=== PATIENT | female | born 1995 | race Caucasian/White ===

== ENCOUNTER → 2017-12-23 | Outpatient (CLI) | payer BC ==
[~2017-12-23] MED LIST: ACET1TAB43 PO; ACHD5005 PO; DOCU-143 PO; DOCU100C37 PO; GLYB2.5T4 PO; IBUP-1773 PO; IRON1TAB96 PO; NORG1TAB79 PO; PREN-148 PO
--- NOTE | 2017-12-23 13:58 | Diagnostic Imaging Report ---
INDICATION: survey. TECHNIQUE: Multiple real-time grayscale images were obtained over the gravid uterus. COMPARISON: None. FINDINGS: There is a single live fetus in a variable presentation. Cervical length is 4 cm. Placenta is anterior. The amniotic fluid volume is normal. heart rate was recorded at 139 beats per minute. kidneys, bladder, and stomach are unremarkable apart from slight prominence of the renal pelves bilaterally measuring approximately 5 mm each. brain is unremarkable. There is a four-chamber heart. There is a three-vessel cord with normal cord insertion. spine is unremarkable. Maternal adnexa was not evaluated. Biometrical measurements are as follows: Biparietal 4.83 cm, age 20 weeks 5 days. Head circumference 17.44 cm, age 20 weeks 0 days. Abdominal circumference 14.78 cm, age 20 weeks 1 days. Femur length 3.03 cm, age 19 weeks 3 days. Sonographic estimate age: 20 weeks 1 days. Sonographic estimated date of delivery: 05/11/2018. Estimated Weight: 313 gm (+/- 46 gm). LMP percentile: 27%. heart rate: 139 beats per minute. number: 1 of 1. IMPRESSION: Single live IUP at 20 weeks 1 day gestational age. Estimated date of confinement sonographically is 05/11/2018. Dictated by: Dictated on workstation # [id number]
== END ==
LOC: RAD 12:52
PROVIDERS: ATTEND Obstetrics & Gynecology
DX: Z36.89 Encounter for other specified antenatal screening (principal); Z3A.20 20 weeks gestation of pregnancy
CPT/HCPCS: 76805

== ENCOUNTER 2018-05-02 06:30 | Inpatient (IN) | payer BC ==
[2018-05-02] VITALS (42 sets, daily range): BP systolic 103–143; BP diastolic 58–86
[~2018-05-02] VITALS: Ht 177.8 cm; Wt 85.7 kg
[2018-05-02] MEDS ORDERED: NS IV 1000 ML 1,000 ML ONE (07:19)
[2018-05-02] MEDS ORDERED: NS IV 1000 ML 1,000 ML IV SCH (07:42)
[2018-05-02] MEDS ORDERED: OXYTOCIN/NORMAL SALINE 500 ML IV SCH (07:42)
[2018-05-02] MEDS ORDERED: MINERAL OIL CONCENTRATE 99.9% 15 ML UDC TOP PRN (07:45)
[2018-05-02 07:50] LABS: BASOPHILS % (AUTO) 0 % (0-10); EOSINOPHILS # (AUTO) 0.1 10^3/uL (0.0-0.3); EOSINOPHILS % (AUTO) 1 % (0-10); HEMATOCRIT 36 % (35-52); LYMPHOCYTES # (AUTO) 2.5 X 10^3 (1.0-4.0); LYMPHOCYTES % (AUTO) 27 % (12-44); MEAN CORPUSCULAR HEMOGLOBIN 31 PG (25-34); MEAN CORPUSCULAR HGB CONC 36 G/DL (32-36); MEAN CORPUSCULAR VOLUME 86 FL (80-99); MEAN PLATELET VOLUME 10.1 FL (7.4-10.4); MONOCYTES # (AUTO) 0.5 X 10^3 (0.0-1.0); MONOCYTES % (AUTO) 6 % (0-12); NEUTROPHILS # (AUTO) 6.3 X 10^3 (1.8-7.8); NEUTROPHILS % (AUTO) 66 % (42-75); PLATELET COUNT 311 10^3/uL (130-400); RED BLOOD COUNT 4.23 10^6/uL (4.35-5.85); RED CELL DISTRIBUTION WIDTH 13.7 % (10.0-14.5); WHITE BLOOD COUNT 9.4 10^3/uL (4.3-11.0)
--- NOTE | 2018-05-02 08:31 | History & Physical-OB ---
OB - Chief Complaint & HPI Date/Time Date of Admission: Date of Admission: May 02, 2018 at 6:42 am Date seen by a Provider: May 02, 2018 Time Seen by a Provider: 08:07 Chief Complaint/History OB-Reason for Admission/Chief: Induction of Labor Hx : 2 Hx Para: 1 Expected Date of Delivery: May 11, 2018 Gestational Age in Weeks: 38 Gestational Age in Days: 5 Admission Nurse Assessment Rev: Yes History of Labs O pos Antibody neg RI RPR NR HB sAg NR HIV NR GC neg GBS neg Allergies and Home Medications Allergies Coded Allergies: Penicillins (Verified Allergy, Mild, Itching, 10/17/15) Home Medications Docusate Sodium 100 Mg Capsule, 100 MG PO BID Prescribed by: RADHA HOLGUIN on 10/21/15 0959 Hydrocodone Bit/Acetaminophen 1 Each Tablet, 1 TAB PO Q4H PRN Prescribed by: RADHA HOLGUNI on 10/21/15 0959 Norgestrel-Ethinyl Estradiol 1 Each Tablet, 1 EACH PO DAILY, (Reported) Patient Home Medication List Home Medication List Reviewed: Yes OB - History Hx of Present Care: Yes Ultrasounds: Normal mid trimester US Obstetrical Complications: Gestational Diabetes Medical Complications: None Delivery History Hx Blood Disorders: No Adverse Rxn to Tranfusion: No Patient Past Medical History none Social History/Family History HIV/AIDS: No Immunizations Hepatitis A: No Hepatitis B: No Tetanus Booster (TDap): Less than 5yrs Date of Influenza Vaccine: Jun 18, 2015 OB - Admission Exam Physical Exam HEENT: NCAT Heart: Rhythm Normal Lungs: Clear Abdomen: Gravid Extremities: Normal Reflexes: Normal Cervical Dilatation: 3cm Effacement: 75% Station: -1 Membranes: Intact Heart Rate: 130's Accelerations: Accelerations Present Decelerations: No Decelerations Short Term Variability: Present Delicatessen Store Manager Variability: Average (6-25) Contractions on Admission: 6-10 Minutes Apart Intensity: Mild Rich Scoring Tool (Modified) Dilation (cm): 3-4cm (2) Effacement (%): 51-79% (2) Descent/Station: -1,0 (2) Cervix Consistency: Soft (2) Cervix Position: Middle/Mid-Position (1) Add 1 point for: Each previous vaginal delivery (1) Rich Score: 10 Labs Laboratory Tests Test 05/02/18 07:00 Range/Units White Blood Count 9.4 4.3-11.0 10^3/uL Red Blood Count 4.23 L 4.35-5.85 10^6/uL Hemoglobin 13.0 11.5-16.0 G/DL Hematocrit 36 35-52 % Mean Corpuscular Volume 86 80-99 FL Mean Corpuscular Hemoglobin 31 25-34 PG Mean Corpuscular Hemoglobin Concent 36 32-36 G/DL Red Cell Distribution Width 13.7 10.0-14.5 % Platelet Count 311 130-400 10^3/uL Mean Platelet Volume 10.1 7.4-10.4 FL Neutrophils (%) (Auto) 66 42-75 % Lymphocytes (%) (Auto) 27 12-44 % Monocytes (%) (Auto) 6 0-12 % Eosinophils (%) (Auto) 1 0-10 % Basophils (%) (Auto) 0 0-10 % Neutrophils # (Auto) 6.3 1.8-7.8 X 10^3 Lymphocytes # (Auto) 2.5 1.0-4.0 X 10^3 Monocytes # (Auto) 0.5 0.0-1.0 X 10^3 Eosinophils # (Auto) 0.1 0.0-0.3 10^3/uL Basophils # (Auto) 0.0 0.0-0.1 10^3/uL OB - Assessment/Plan/Diagnosis Assessment Assessment: induction of labor Admission Dx 22 yo @ 38.5 GDMA2 GBS neg Admission Status: Inpatient Order (span 2 midnights) Reason for Inpatient Admission: Induction of labor Plan Induction Method: CAROLINE CHOI DO May 02, 2018 8:31 am
[2018-05-02] MEDS ORDERED: FLU QUADRIvalent (5+ YOA) 2018-2019 (AFLURIA) 0.5 ML IM ONE (09:45)
[2018-05-02] MEDS ORDERED: SUFENTA 0.6MCG/ML BUPIVA 0.125 100 ML ONE (10:35)
[2018-05-02] MEDS ORDERED: fentaNYL INJECTION 100 MCG/2 ML AMP ONE (10:48)
[2018-05-02] MEDS ORDERED: LIDOCAINE PF 2% 5 ML (XYLOCAINE) VIAL ONE (10:48)
[2018-05-02] MEDS ORDERED: LACTATED RINGERS 1,000 ML IV ONE (11:23)
[2018-05-02] MEDS ORDERED: EPIDURAL (SUFENTA 0.6MCG/ML BUPIVA 0.125%) 100 ML BAG EPI SCH (11:30)
[2018-05-02] MEDS ORDERED: ONDANSETRON 4 MG/2 ML (SDV) Z0FRAN IV PRN (11:30)
[2018-05-02] MEDS ORDERED: NALOXONE 0.4 MG/ML 1 ML (NARCAN) VIAL IV PRN (11:30)
[2018-05-02] MEDS ORDERED: diphenhydrAMINE 50 MG/ML INJ (BENADRYL) IV PRN (11:30)
[2018-05-02] MEDS ORDERED: CATHETER FLUSH 10 ML SYR IV PRN (11:30)
[2018-05-02] MEDS ORDERED: LIDOCAINE/EPI 2% 1:200,00 (XYLOCAINE) 10 ML VIAL ONE (11:47)
[2018-05-02] MEDS: OXYTOCIN/NORMAL SALINE 500 ML IV SCH ×2 (12:03→12:32)
--- NOTE | 2018-05-02 12:14 | OB Labor & Delivery Record ---
L&D History Date of Service Date of Service: May 02, 2018 History Expected Date of Delivery: May 11, 2018 Gestational Age in Weeks: 38 Hx : 2 Hx Para: 1 Complications Events: Gestational Diabetes, Routine care Operative Indications (Cesarea: N/A-Vaginal Delivery Intrapartal Events: None L&D Stage1 Stage One Onset of Labor - Date: May 02, 2018 Monitors and Tracing Monitor Mode: External Heart Rate: 135 Monitor Accelerations: Uniform Monitor Decelerations: None Station: -1 Fpc Variability: Average (6-10) Short Term Variability: Present Presentation: Vertex Vital Signs VS - Last 72 Hours, by Label 05/02/18 05/02/18 05/02/18 05/02/18 06:50 07:20 08:05 08:25 Temp 98.8 99.1 Pulse 97 93 82 83 Resp 18 B/P (MAP) 136/84 (101) 133/86 (102) 123/78 (93) 131/79 (96) Rupture of Membranes Spontaneous Ruture of Membrane: No Amniotic Membrane Rupture Time: 08:15 Amniotic Membrane Fluid Desc.: Clear Vaginal Bleeding Description: Normal Show Induction/Anesthesia Epidural Cath Placement - Time: 11:15 Progress/Notes AROM, and Pitocin used. Max dose of 4 mu/min. L&D Stage2 Stage Two Stage II Date: May 02, 2018 Monitors and Tracing Monitor Mode: External Monitor Accelerations: Uniform Monitor Decelerations: Variable River Boat Captain Variability: Average (6-10) Short Term Variability: Present Position: Right Occiput Anterior Presentation: Vertex Cord Descript/Complications Cord Vessel Description: 3 Vessels Delivery Type Infant Delivery Method: Spontaneous Vaginal Anterior Shoulder: Right Episiotomy/Perineal Laceration Laceraction(s)/Extensions: No Condition of Delivery 1 minute Comment: 9 5 minute Comment: 9 Notes 7lbs 5 oz Condition of Condition of : Living Exam: No Observed Abnormalities Resuscitation Resuscitation: N/A - Spontaneous Resp L&D Stage3 Stage Three Stage III Date: May 02, 2018 Pictocin Pitocin Administration Comment: 30 mu wide open at delivery of placenta Placenta Delivery Placenta Delivery: Spontaneous Delivery Summary Summary Estimated blood loss (mL): 250 Attending at delivery: Caroline Desai DO Condition of Delivery Examined: Cervix Examined, Uterus Explored Post Hemorrhage: No Condition of Mother stable Condition of Infant (s) stable CAROLINE DESAI DO May 02, 2018 12:14 pm
[2018-05-02] MEDS ORDERED: TETANUS,DIPTH,PERTUSS P/F (BOOSTRIX) 0.5 ML VIAL IM ONE (12:15)
[2018-05-02] MEDS ORDERED: BENZOCAINE/MENTHOL (DERMOPLAST) 56 ML CAN TP PRN (12:15)
[2018-05-02] MEDS ORDERED: MEASLES,MUMPS,RUBELLA 1 EA INJ SQ ONE (12:15)
[2018-05-02] MEDS ORDERED: WITCH HAZEL(TUCKS) 40 EA JAR TOP PRN (12:15)
[2018-05-02] MEDS ORDERED: HYDROcodone/APAP 5 MG/325 MG (LORTAB) TAB PO PRN (12:15)
[2018-05-02] MEDS ORDERED: DIBUCAINE (NUPERCAINAL) 1% OINT 30 GM TOP PRN (12:15)
--- NOTE | 2018-05-02 13:08 | Discharge Inst-Women's Service ---
Discharge Inst-Women's Serv Depart Medication/Instructions New, Converted or Re-Newed RX: RX on Chart Consults/Follow Up Additional Follow Up: Yes Orders/Referrals Dr. Desai in 6 weeks Activity Activity: Activity as Tolerated Driving Instructions: No Driving for 1 Week NO SMOKING: NO SMOKING Nothing Inside Vagina: No Douching, No Manuel Garcia Ii, No Tampons Diet Discharge Diet: No Restrictions Symptoms to Report to : Bleeding Excessive, Pain Increased, Fever Over 101 Degrees F, Vaginal Bleeding Increase, Questions/Concerns For Any Problems or Questions: Contact Your Physician CAROLINE DESAI DO May 02, 2018 1:08 pm
[2018-05-02] MEDS ORDERED: CATHETER FLUSH 10 ML SYR IV SCH ×2 (14:00)
[2018-05-02] MEDS: IBUPROFEN 600 MG (MOTRIN) TAB PO SCH ×2 (14:49→20:00)
[2018-05-02] MEDS ORDERED: DOCU100C37 PO (17:05)
[2018-05-02] MEDS ORDERED: FERR325T18 PO (17:05)
[2018-05-02] MEDS ORDERED: Benzocaine/Menthol TP (17:05)
[2018-05-02] MEDS ORDERED: ACHD5005 PO (17:05)
[2018-05-02] MEDS ORDERED: IBUP-844 PO (17:05)
[2018-05-02] MEDS ORDERED: PNV1TABL67 PO (17:05)
[2018-05-02] MEDS: DOCUSATE SODIUM 100 MG (COLACE) CAP PO SCH (21:58)
[2018-05-03 01:45] VITALS: BP 119/73
[2018-05-03] MEDS: IBUPROFEN 600 MG (MOTRIN) TAB PO SCH ×4 (01:46→21:38)
[2018-05-03 04:52] LABS: BASOPHILS % (AUTO) 0 % (0-10); EOSINOPHILS # (AUTO) 0.1 10^3/uL (0.0-0.3); EOSINOPHILS % (AUTO) 1 % (0-10); HEMATOCRIT 35 % (35-52); HEMOGLOBIN 12.4 G/DL (11.5-16.0); LYMPHOCYTES % (AUTO) 25 % (12-44); MEAN CORPUSCULAR HEMOGLOBIN 31 PG (25-34); MEAN CORPUSCULAR HGB CONC 36 G/DL (32-36); MEAN CORPUSCULAR VOLUME 87 FL (80-99); MEAN PLATELET VOLUME 10.1 FL (7.4-10.4); MONOCYTES # (AUTO) 0.8 X 10^3 (0.0-1.0); MONOCYTES % (AUTO) 6 % (0-12); NEUTROPHILS # (AUTO) 8.3 X 10^3 (1.8-7.8); NEUTROPHILS % (AUTO) 68 % (42-75); PLATELET COUNT 260 10^3/uL (130-400); RED BLOOD COUNT 3.97 10^6/uL (4.35-5.85); RED CELL DISTRIBUTION WIDTH 13.5 % (10.0-14.5); WHITE BLOOD COUNT 12.2 10^3/uL (4.3-11.0)
[2018-05-03] MEDS ORDERED: PRENATAL VITAMIN 1 EA TAB PO SCH (07:00)
[2018-05-03] MEDS ORDERED: FERROUS SULF 325 MG (IRON) TAB PO SCH (08:00)
--- NOTE | 2018-05-03 09:03 | Anesthesia-Regional Post-Op ---
Regional Patient Condition Mental Status: Alert, Oriented x3 Circulation: Same as Pre-Op Headache: Absent Sensation: Full Recovery Motor Block: Absent Post Op Complications Complications None Follow Up Care/Instructions Patient Instructions None needed. Anesthesia/Patient Condition Patient is doing well, no complaints, stable vital signs, no apparent adverse anesthesia problems. No complications reported per nursing. JOSE LUIS KENNEY CRNA May 03, 2018 09:03
[2018-05-03] MEDS: DOCUSATE SODIUM 100 MG (COLACE) CAP PO SCH ×2 (09:08→21:38)
[2018-05-03 09:09] VITALS: BP 132/88
[2018-05-03 16:20] VITALS: BP 119/73
[2018-05-03 17:23] VITALS: BP 124/86
[2018-05-03 20:00] VITALS: BP 139/95
--- NOTE | 2018-05-05 10:28 | Physician Query-Final Dx ---
BRYANT VILLALBA 05/05/18 1028: Final Diagnosis Give Final Diagnosis Please give Final Diagnosis CAROLINE DESAI DO 05/05/182042: Final Diagnosis Give Final Diagnosis PPD 1 NVD BRYANT VILLALBA May 05, 2018 10:28 CAROLINE DESAI DO May 05, 2018 20:43
== END 2018-05-03 21:38 | disposition home or self-care (01) | DRG 807 ==
LOC: LDRP 06:42
PROVIDERS: ADMIT Obstetrics & Gynecology; ATTEND Obstetrics & Gynecology
PROC: 10E0XZZ Delivery of Products of Conception, External Approach (ICD-10-PCS; principal; 2018-05-02)
PROC: 10907ZC Drainage of Amniotic Fluid, Therapeutic from Products of Conception, Via Natural or Artificial Opening (ICD-10-PCS; 2018-05-02)
DX: O24.425 Gestational diabetes mellitus in childbirth, controlled by oral hypoglycemic drugs (principal); Z3A.38 38 weeks gestation of pregnancy; Z37.0 Single live birth; Z79.84 Long term (current) use of oral hypoglycemic drugs
CPT/HCPCS: 36415; 82962; 85025; 86850; 86900; 86901

== ENCOUNTER → 2022-03-06 | Outpatient (CLI) | payer BC, MEDICAID ==
[~2022-03-06] MED LIST changes: +ACET-11 PO; -ACET1TAB43 PO; +Benzocaine/Menthol TP; +FERR325T18 PO; +GLBR2.5T PO; -GLYB2.5T4 PO; +IBUP-844 PO; +PNV1TABL67 PO
--- NOTE | 2022-03-06 13:22 | Diagnostic Imaging Report ---
INDICATION: survey. TECHNIQUE: Multiple real-time grayscale images were obtained over the gravid uterus. COMPARISON: None FINDINGS: There is a single live fetus in a cephalic presentation. heart rate was recorded at 144 bpm. Placenta is posterior and fundal. Amniotic fluid volume is normal. Cervical length is approximately 8 cm. survey demonstrates kidneys, bladder and stomach to be unremarkable. The brain is unremarkable. There is a four-chamber heart. There is a three-vessel cord with normal insertion. spine is unremarkable. Biometrical measurements are as follows: Biparietal 4.60 cm, age 20 weeks 0 days. Head circumference 17.17 cm, age 19 weeks 6 days. Abdominal circumference 14.70 cm, age 20 weeks 0 days. Femur length 3.15 cm, age 19 weeks 6 days. Sonographic estimate age: 20 weeks 0 days. Sonographic estimated date of delivery: 07/24/2022. Estimated Weight: 319 gm (+/- 47 gm). LMP percentile: 47%. heart rate: 144 beats per minute. number: 1 of 1. IMPRESSION: Single live IUP 20 weeks 0 days gestational age. Estimated date of confinement sonographically is 07/24/2022. Dictated by: Dictated on workstation # [id number]
== END ==
LOC: RAD 09:56
PROVIDERS: ATTEND Nurse Practitioner Women's Health
DX: Z34.01 Encounter for supervision of normal first pregnancy, first trimester (principal); Z3A.20 20 weeks gestation of pregnancy
CPT/HCPCS: 76805

== ENCOUNTER → 2022-06-05 | Outpatient (CLI) | payer BC, MEDICAID ==
--- NOTE | 2022-06-05 14:26 | Diagnostic Imaging Report ---
INDICATION: . Gestational diabetes TECHNIQUE: Multiple real-time grayscale images were obtained over the gravid uterus. COMPARISON: 03/06/2022 FINDINGS: There is a single live intrauterine gestation in cephalic presentation. The placenta is anterior fundal without evidence of previa. The heart rate measures 139 BPM. The profile is seen. The amniotic fluid index measures 12.2 cm. The biophysical profile score is 8 out of 8 Biometrical measurements are as follows: Biparietal 8.52 cm, age 34 weeks 3 days. Head circumference 31.37 cm, age 35 weeks 2 days. Abdominal circumference 31.01 cm, age 35 weeks 0 days. Femur length 6.57 cm, age 33 weeks 6 days. Sonographic estimate age: 34 weeks 5 days. Sonographic estimated date of delivery: 07/12/2022. Estimated Weight: 2472 gm (+/- 361 gm). LMP percentile: 90%. heart rate: 139 beats per minute. number: 1 of 1. IMPRESSION: 1. Single live intrauterine gestation measuring 34 weeks and 5 days, which is within range of the clinical dates. 2. Physical profile score of 8 out of 8 Dictated by: Dictated on workstation # [id number]
== END ==
LOC: RAD 11:51
PROVIDERS: ATTEND Nurse Practitioner Women's Health
DX: O24.415 Gestational diabetes mellitus in pregnancy, controlled by oral hypoglycemic drugs (principal); Z3A.34 34 weeks gestation of pregnancy
CPT/HCPCS: 76805; 76819

== ENCOUNTER 2022-07-15 06:02 | Inpatient (IN) | payer BC, MEDICAID ==
[2022-07-15] VITALS (46 sets, daily range): BP systolic 114–137; BP diastolic 58–92
[~2022-07-15] VITALS: Ht 177.8 cm; Wt 89.5 kg
--- OUTSIDE RECORDS SUMMARY | 2022-07-15 07:29 | XMS REPORT | Clinical Summary ---
Author Author [facility] Organization [facility] Address Unknown Phone Unavailable Care Team Providers Care Teller Supervisor Name Role Phone No Pcp, Na PCP Unavailable Source Comments Some departments are not documenting in the electronic medical record. If you d o not see the information that you expected, contact Release of Information in [facility] Information Management department at [phone] for further assistan ce in locating additional records.[facility] Allergies Not on File Medications Not on file Active Problems Not on file Social History Date Tobacco Use Types Packs/Day Years Used Smoking Tobacco: Never Assessed Sex Assigned at Date Recorded Not on file Last Filed Vital Signs Not on file Plan of Treatment Health Maintenance Due Date Last Done Comments COVID-19 VACCINE (#1) 01/09/1994 HIV SCREENING 2008 DTAP/TDAP VACCINES (1 - 2011 Tdap) HEPATITIS C SCREENING 2011 PHYSICAL (COMPREHENSIVE) 2011 EXAM CERVICAL CANCER SCREENING 2014 DEPRESSION SCREENING 08/02/2021 INFLUENZA VACCINE (#1) 2022 Results Not on filefrom Last 3 Months Insurance Type Payer Benefit Subscriber ID Effective Phone Address Plan / Dates Group PPO [facility] [id number] 2017- [phone] [id number] [facility] [place] [address] Medicaid [facility] MEDICA[facility] [id number] 2017-P [id number] [place] [address] Care Teams Start Date End Date Teller Supervisor Relationship Specialty 12/01/17 No Pcp, Na PCP - General
--- NOTE | 2022-07-15 07:56 | History & Physical-OB ---
OB - Chief Complaint & HPI Date/Time Date of Admission: Date of Admission: Jul 15, 2022 at 07:26 Date seen by a Provider: Jul 15, 2022 Time Seen by a Provider: 07:55 Chief Complaint/History Hx : 3 Hx Para: 2 Expected Date of Delivery: Jul 25, 2022 Gestational Age in Weeks: 38 Gestational Age in Days: 5 Other reason for admission: Vanishing twin, and GDMA2 Admission Nurse Assessment Rev: Yes History of Labs O pos Antibody neg RI RPR NR HBsAg NR HIV NR GC neg GBS neg Allergies and Home Medications Allergies Coded Allergies: Penicillins (Verified Allergy, Mild, Itching, 10/17/15) Patient Home Medication List Home Medication List Reviewed: Yes Docusate Sodium (Docusate Sodium) 100 Mg Capsule, 100 MG PO BID PRN for CONSTIPATION-1ST LINE Prescribed by: CAROLINE DESAI on 05/02/181704 Ferrous Sulfate (Ferrous Sulfate) 325 Mg Tablet, 325 MG PO DAILY@0800 Prescribed by: CAROLINE DESAI on 05/02/181704 Hydrocodone Bit/Acetaminophen (Lortab 5 Mg Tablet) 1 Tab Tab, 1-2 TAB PO Q4H PRN for PAIN-MODERATE Prescribed by: CAROLINE DESAI on 05/02/181704 Ibuprofen (Ibu) 600 Mg Tablet, 600 MG PO Q6H Prescribed by: CAROLINE DESAI on 05/02/181704 Pnv with Ca,No.72/Iron/FA (Pnv Plus Multivit Tab) 1 Each Tablet, 1 EA PO DAILY@0700 Prescribed by: CAROLINE DESAI on 05/02/181704 [Benzocaine/Menthol] 56 ML AEROSOL, 0 ML TP UD PRN for PAIN- SEE INSTRUCTIONS Prescribed by: CAROLINE DESAI on 05/02/181704 OB - History Hx of Present Care: Yes Ultrasounds: Abnormal US findings (twin gestation noted at 1st US, but vanished at follow up) Obstetrical Complications: Gestational Diabetes Delivery History Hx Blood Disorders: No Adverse Rxn to Tranfusion: No Patient Past Medical History none Immunizations Hepatitis A: No Hepatitis B: No Tetanus Booster (TDap): Less than 5yrs OB - Admission Exam Physical Exam HEENT: NCAT Heart: Rhythm Normal Lungs: Clear Abdomen: Gravid Extremities: Normal Reflexes: Normal Heart Rate: 130's Accelerations: Accelerations Present Decelerations: No Decelerations Residential Variability: Average (6-25) Contractions on Admission: 6-10 Minutes Apart Intensity: Mild OB - Assessment/Plan/Diagnosis Assessment Assessment: induction of labor Admission Dx 27 yo @ 38 weeks Vanishing twins GDMA2 GBS neg Admission Status: Inpatient Order (span 2 midnights) Reason for Inpatient Admission: 38 week IOL Plan Plan: Induction Induction Method: CAROLINE CHOI DO Jul 15, 2022 07:56
[2022-07-15] MEDS ORDERED: GLYB1.253 PO (08:22)
[2022-07-15] MEDS ORDERED: PREN-37 PO (08:22)
[2022-07-15] MEDS ORDERED: GLBR5T PO (08:22)
[2022-07-15] MEDS ORDERED: MINERAL OIL 30 ML UDC TOP PRN (09:00)
[2022-07-15] MEDS ORDERED: D5 LR IV SOLUTION 1,000 ML IV SCH (09:00)
[2022-07-15 09:09] LABS: BASOPHILS % (AUTO) 0 % (0-10); EOSINOPHILS # (AUTO) 0.1 10^3/uL (0.0-0.3); EOSINOPHILS % (AUTO) 1 % (0-10); HEMATOCRIT 39 % (35-52); HEMOGLOBIN 13.2 g/dL (11.5-16.0); LYMPHOCYTES # (AUTO) 2.8 10^3/uL (1.0-4.0); LYMPHOCYTES % (AUTO) 29 % (12-44); MEAN CORPUSCULAR HEMOGLOBIN 30 pg (25-34); MEAN CORPUSCULAR HGB CONC 34 g/dL (32-36); MEAN CORPUSCULAR VOLUME 87 fL (80-99); MEAN PLATELET VOLUME 10.5 fL (9.0-12.2); MONOCYTES # (AUTO) 0.6 10^3/uL (0.0-1.0); MONOCYTES % (AUTO) 6 % (0-12); NEUTROPHILS # (AUTO) 6.1 10^3/uL (1.8-7.8); NEUTROPHILS % (AUTO) 62 % (42-75); PLATELET COUNT 263 10^3/uL (130-400); WHITE BLOOD COUNT 9.8 10^3/uL (4.3-11.0)
[2022-07-15] MEDS: NS IV 1000 ML 1,000 ML IV SCH ×2 (09:09→17:37)
[2022-07-15] MEDS ORDERED: OXYTOCIN PRE-MIX DRIP 500 ML IV SCH (10:00)
[2022-07-15] MEDS ORDERED: fentaNYL 2 mcg/ml BUPIVA 0.125 100 ML ONE (11:31)
[2022-07-15] MEDS ORDERED: NALOXONE 0.4 MG/ML 1 ML (NARCAN) VIAL IV PRN ×3 (13:15→14:45)
[2022-07-15] MEDS ORDERED: METOCLOPRAMIDE INJ 10 MG/2 ML (REGLAN) IV PRN (13:15)
[2022-07-15] MEDS ORDERED: diphenhydrAMINE 50 MG/ML INJ (BENADRYL) IV PRN (13:15)
[2022-07-15] MEDS ORDERED: LACTATED RINGERS 1,000 ML IV SCH (13:15)
[2022-07-15] MEDS ORDERED: fentaNYL 2 mcg/ml BUPIVA 0.125 100 ML EPI SCH (13:15)
[2022-07-15] MEDS ORDERED: ONDANSETRON 4 MG/2 ML (SDV) Z0FRAN IV PRN (13:15)
[2022-07-15] MEDS ORDERED: CATHETER FLUSH 10 ML SYR IV SCH ×2 (14:00→22:00)
[2022-07-15] MEDS: OXYTOCIN PRE-MIX DRIP 500 ML IV SCH ×2 (14:26→15:00)
--- NOTE | 2022-07-15 14:44 | OB Labor & Delivery Record ---
L&D History Date of Service Date of Service: Jul 15, 2022 History Expected Date of Delivery: Jul 25, 2022 Gestational Age in Weeks: 38 Hx : 3 Hx Para: 2 Complications Events: Routine care Operative Indications (Cesarea: N/A-Vaginal Delivery Intrapartal Events: None L&D Stage1 Stage One Onset of Labor - Date: Jul 15, 2022 Monitors and Tracing Monitor Mode: External Heart Rate: 130 Monitor Accelerations: Uniform Monitor Decelerations: None Station: 0 Consultant Teacher Variability: Average (6-10) Short Term Variability: Present Presentation: Vertex Vital Signs VS - Last 72 Hours, by Label 07/15/22 07/15/22 07/15/22 07/15/22 06:15 06:15 06:45 07:15 Temp 36.1 36.1 Pulse 100 100 85 78 Resp 18 18 16 16 B/P (MAP) 130/61 (84) 119/71 (87) 120/75 (90) Pulse Ox 97 97 96 97 O2 Delivery Room Air Room Air Room Air Room Air 07/15/22 07/15/22 07/15/22 07/15/22 09:10 09:40 10:15 10:30 Pulse 69 68 58 71 Resp 16 16 16 16 B/P (MAP) 128/76 (93) 131/85 (100) 124/81 (95) 123/80 (94) Pulse Ox 97 97 O2 Delivery Room Air Room Air Room Air Room Air 07/15/22 07/15/22 07/15/22 07/15/22 10:45 11:00 11:15 11:30 Pulse 64 68 73 64 Resp 16 16 16 16 B/P (MAP) 129/79 (96) 133/84 (100) 126/83 (97) 123/80 (94) O2 Delivery Room Air Room Air Room Air Room Air 07/15/22 07/15/22 07/15/22 07/15/22 11:45 12:00 12:15 12:30 Temp 37.2 Pulse 78 63 88 90 Resp 16 16 16 16 B/P (MAP) 133/81 (98) 133/89 (104) 114/83 (93) 119/88 (98) O2 Delivery Room Air Room Air Room Air Room Air 07/15/22 07/15/22 07/15/2222 12:42 12:45 12:50 12:55 Pulse 75 77 64 70 Resp 16 16 16 16 B/P (MAP) 126/86 (99) 137/89 (105) 135/76 (95) 131/67 (88) Pulse Ox 98 98 98 O2 Delivery Room Air Room Air Room Air Room Air 07/15/22 07/15/22 07/15/22 07/15/22 13:00 13:05 13:08 13:11 Pulse 81 78 75 75 Resp 16 16 16 16 B/P (MAP) 137/73 (94) 119/68 (85) 122/66 (84) 119/69 (86) Pulse Ox 96 96 96 95 O2 Delivery Room Air Room Air Room Air Room Air 07/15/22 07/15/22 07/15/22 07/15/22 13:13 13:15 13:18 13:20 Pulse 85 81 81 79 Resp 16 16 16 16 B/P (MAP) 123/72 (89) 128/77 (94) 128/77 (94) 123/74 (90) Pulse Ox 95 96 95 98 O2 Delivery Room Air Room Air Room Air Room Air 07/15/22 07/15/22 07/15/22 07/15/22 13:25 13:30 13:35 13:40 Pulse 74 77 72 82 Resp 16 16 16 16 B/P (MAP) 123/58 (79) 127/78 (94) 125/75 (92) 123/72 (89) Pulse Ox 98 99 98 98 O2 Delivery Room Air Room Air Room Air Room Air 07/15/22 07/15/22 13:45 13:52 Pulse 82 88 Resp 16 16 B/P (MAP) 128/78 (95) 129/72 (91) Pulse Ox 98 99 O2 Delivery Room Air Room Air Rupture of Membranes Spontaneous Ruture of Membrane: No Amniotic Membrane Rupture Time: 0805 Amniotic Membrane Fluid Desc.: Clear Vaginal Bleeding Description: Normal Show Induction/Anesthesia Epidural Cath Placement - Time: 1250 Progress/Notes Patient admitted for IOL due to GDM. AROM performed this am epidural placed and she progressed with no further augmnetation to complete and + 2 station. L&D Stage2 Stage Two Stage II Date: Jul 15, 2022 Monitors and Tracing Monitor Mode: External Heart Rate: 130 Position: Right Occiput Anterior Presentation: Vertex Cord Descript/Complications Cord Vessel Description: 3 Vessels Delivery Type Infant Delivery Method: Spontaneous Vaginal Anterior Shoulder: Left Episiotomy/Perineal Laceration Laceraction(s)/Extensions: Yes Episiotomy Description: 1st degree Degree (describe repair) repaired using 3-0 rapide in usual fashion Condition of Infant Delivery 1 minute Comment: 8 5 minute Comment: 9 Notes live female weight pending Condition of Infant Condition of : Living Exam: No Observed Abnormalities Resuscitation Resuscitation: N/A - Spontaneous Resp L&D Stage3 Stage Three Stage III Date: Jul 15, 2022 Pictocin Pitocin Administration mu/min: 6 Pitocin ml/hr: 6 Pitocin Administration Comment: no increase in pitocin-cervical change, contractions q 2min and palpate moderate to strong Placenta Delivery Placenta Delivery: Spontaneous Delivery Summary Summary Estimated blood loss (mL): 300 Attending at delivery: Caroline Desai DO Condition of Delivery Examined: Cervix Examined, Uterus Explored Post Hemorrhage: No Condition of Mother stable Condition of Infant (s) stable CAROLINE DESAI DO Jul 15, 2022 14:44
[2022-07-15] MEDS ORDERED: WITCH HAZEL(TUCKS) 40 EA JAR TOP PRN (14:45)
[2022-07-15] MEDS ORDERED: BENZOCAINE/MENTHOL (DERMOPLAST) 56 ML CAN TP PRN (14:45)
[2022-07-15] MEDS ORDERED: MEASLES,MUMPS,RUBELLA 1 EA INJ SQ ONE (14:45)
[2022-07-15] MEDS ORDERED: DIBUCAINE 1% OINTMENT 30 GM TUBE TOP PRN (14:45)
[2022-07-15] MEDS ORDERED: TETANUS,DIPTH,PERTUSS P/F (BOOSTRIX) 0.5 ML VIAL IM ONE (14:45)
[2022-07-15] MEDS: ACETAMINOPHEN 500 MG TAB (TYLENOL) PO SCH ×2 (15:00→21:16)
[2022-07-15] MEDS: IBUPROFEN 600 MG (MOTRIN) TAB PO SCH ×2 (15:00→21:16)
[2022-07-15] MEDS: DOCUSATE SODIUM 100 MG (COLACE) CAP PO SCH (21:16)
[2022-07-16 00:38] VITALS: BP 130/73
[2022-07-16 03:47] VITALS: BP 117/76
[2022-07-16] MEDS: IBUPROFEN 600 MG (MOTRIN) TAB PO SCH ×4 (03:47→21:48)
[2022-07-16] MEDS: ACETAMINOPHEN 500 MG TAB (TYLENOL) PO SCH ×4 (03:47→21:49)
[2022-07-16 07:06] LABS: BASOPHILS # (AUTO) 0.1 10^3/uL (0.0-0.1); BASOPHILS % (AUTO) 1 % (0-10); EOSINOPHILS # (AUTO) 0.1 10^3/uL (0.0-0.3); EOSINOPHILS % (AUTO) 1 % (0-10); HEMATOCRIT 38 % (35-52); HEMOGLOBIN 13.2 g/dL (11.5-16.0); LYMPHOCYTES % (AUTO) 23 % (12-44); MEAN CORPUSCULAR HEMOGLOBIN 31 pg (25-34); MEAN CORPUSCULAR HGB CONC 35 g/dL (32-36); MEAN CORPUSCULAR VOLUME 88 fL (80-99); MEAN PLATELET VOLUME 10.6 fL (9.0-12.2); MONOCYTES # (AUTO) 0.7 10^3/uL (0.0-1.0); MONOCYTES % (AUTO) 6 % (0-12); NEUTROPHILS # (AUTO) 9.1 10^3/uL (1.8-7.8); NEUTROPHILS % (AUTO) 70 % (42-75); PLATELET COUNT 240 10^3/uL (130-400); WHITE BLOOD COUNT 13.2 10^3/uL (4.3-11.0)
--- NOTE | 2022-07-16 07:43 | Postpartum Progress Note ---
ROBI ROGERS 07/16/22 0743: Note Note Day # 1 Subjective: Patient is without complaints. Ambulating, voiding. Tolerating a regular diet without nausea or vomiting. Normal lochia. Pain is well controlled with oral pain medications. Objective: Physical Exam: General - Alert and oriented, no apparent distress Abdomen - Soft, appropriately tender to palpation, non-distended, fundus firm at umbilicus Extremities - no edema, negative Oliver's bilaterally Assessment: PPD 1 vaginal delivery Acute blood loss anemia - denies heavy bleeding over night. Reports one normal bowel movement this morning. Recovering well, hemodynamically stable Plan: Routine care. Encourage breast feeding. Encourage ambulation. Ferrous sulfate supplementation. Plan for discharge today Vitals - Labs Vital Signs - I&O Vital Signs Date Time Temp Pulse Resp B/P (MAP) Pulse Ox O2 Delivery O2 Flow Rate FiO2 07/16/22 03:47 36.2 78 16 117/76 (90) 97 Room Air 07/16/22 00:38 36.3 68 16 130/73 (92) 97 Room Air 07/15/22 21:14 36.2 75 16 117/69 (85) 97 Room Air 07/15/22 17:14 86 16 129/89 (102) Room Air 07/15/22 16:44 86 16 135/78 (97) Room Air 07/15/22 16:14 86 16 126/75 (92) Room Air 07/15/22 15:47 72 16 120/73 (89) Room Air 07/15/22 15:21 75 16 131/86 (101) Room Air 07/15/22 15:06 37.0 74 16 131/92 (105) Room Air 07/15/22 14:51 78 16 126/90 (102) Room Air 07/15/22 14:36 37.1 62 16 120/80 (93) Room Air 07/15/22 14:25 67 16 130/79 (96) Room Air 07/15/22 14:15 83 16 136/88 (104) Room Air 07/15/22 14:00 82 16 128/78 (95) 98 Room Air 07/15/22 13:52 88 16 129/72 (91) 99 Room Air 07/15/22 13:50 88 16 129/72 (91) 99 Room Air 07/15/22 13:45 82 16 128/78 (95) 98 Room Air 07/15/22 13:40 82 16 123/72 (89) 98 Room Air 07/15/22 13:35 72 16 125/75 (92) 98 Room Air 07/15/22 13:30 77 16 127/78 (94) 99 Room Air 07/15/22 13:25 74 16 123/58 (79) 98 Room Air 07/15/22 13:20 79 16 123/74 (90) 98 Room Air 07/15/22 13:18 81 16 128/77 (94) 95 Room Air 07/15/22 13:15 81 16 128/77 (94) 96 Room Air 07/15/22 13:13 85 16 123/72 (89) 95 Room Air 07/15/22 13:11 75 16 119/69 (86) 95 Room Air 07/15/22 13:08 75 16 122/66 (84) 96 Room Air 07/15/22 13:05 78 16 119/68 (85) 96 Room Air 07/15/22 13:00 81 16 137/73 (94) 96 Room Air 07/15/22 12:55 70 16 131/67 (88) 98 Room Air 07/15/22 12:50 64 16 135/76 (95) 98 Room Air 07/15/22 12:45 77 16 137/89 (105) 98 Room Air 07/15/22 12:42 75 16 126/86 (99) Room Air 07/15/22 12:30 90 16 119/88 (98) Room Air 07/15/22 12:15 37.2 88 16 114/83 (93) Room Air 07/15/22 12:00 63 16 133/89 (104) Room Air 07/15/22 11:45 78 16 133/81 (98) Room Air 07/15/22 11:30 64 16 123/80 (94) Room Air 07/15/22 11:15 73 16 126/83 (97) Room Air 07/15/22 11:00 68 16 133/84 (100) Room Air 07/15/22 10:45 64 16 129/79 (96) Room Air 07/15/22 10:30 71 16 123/80 (94) Room Air 07/15/22 10:15 58 16 124/81 (95) Room Air 07/15/22 09:40 68 16 131/85 (100) 97 Room Air 07/15/22 09:10 69 16 128/76 (93) 97 Room Air I & O 07/16/22 07:00 Intake Total 1000 ml Balance 1000 ml Labs Laboratory Tests 07/15/22 07:45: White Blood Count 9.8, Red Blood Count 4.43, Hemoglobin 13.2, Hematocrit 39, Mean Corpuscular Volume 87, Mean Corpuscular Hemoglobin 30, Mean Corpuscular Hemoglobin Concent 34, Red Cell Distribution Width 13.5, Platelet Count 263, Mean Platelet Volume 10.5, Immature Granulocyte % (Auto) 1, Neutrophils (%) (Auto) 62, Lymphocytes (%) (Auto) 29, Monocytes (%) (Auto) 6, Eosinophils (%) (Auto) 1, Basophils (%) (Auto) 0, Neutrophils # (Auto) 6.1, Lymphocytes # (Auto) 2.8, Monocytes # (Auto) 0.6, Eosinophils # (Auto) 0.1, Basophils # (Auto) 0.0, Immature Granulocyte # (Auto) 0.1, Syphilis Serology Non-Reactive 07/16/22 06:18: White Blood Count 13.2H, Red Blood Count 4.32, Hemoglobin 13.2, Hematocrit 38, Mean Corpuscular Volume 88, Mean Corpuscular Hemoglobin 31, Mean Corpuscular Hemoglobin Concent 35, Red Cell Distribution Width 13.6, Platelet Count 240, Mean Platelet Volume 10.6, Immature Granulocyte % (Auto) 1, Neutrophils (%) (Auto) 70, Lymphocytes (%) (Auto) 23, Monocytes (%) (Auto) 6, Eosinophils (%) (Auto) 1, Basophils (%) (Auto) 1, Neutrophils # (Auto) 9.1H, Lymphocytes # (Auto) 3.0, Monocytes # (Auto) 0.7, Eosinophils # (Auto) 0.1, Basophils # (Auto) 0.1, Immature Granulocyte # (Auto) 0.1 CAROLINE DESAI DO 07/16/22 0813: Note Note Verification and Attestation of Medical Student E/M Service A medical student performed and documented this service in my presence. I reviewed and verified all information documented by the medical student and made modifications to such information, when appropriate. I personally performed the physical exam and medical decision making. Caroline Desai, Jul 16, 2022,08:12 ROBI ROGERS Jul 16, 2022 07:43 CAROLINE DESAI DO Jul 16, 2022 08:13
[2022-07-16 08:16] VITALS: BP 135/84
--- NOTE | 2022-07-16 08:17 | Discharge Inst-Women's Service ---
Discharge Inst-Women's Serv Depart Medication/Instructions New, Converted or Re-Newed RX: Transmitted to Pharmacy Final Diagnosis PPD 2 NVD Problems Reviewed?: Yes Consults/Follow Up Additional Follow Up: Yes Orders/Referrals Dr. Desai in 6 weeks Activity Activity: Activity as Tolerated Driving Instructions: No Driving for 1 Week NO SMOKING: NO SMOKING Nothing Inside Vagina: No Douching, No [place], No Tampons Diet Discharge Diet: No Restrictions Symptoms to Report to : Bleeding Excessive, Pain Increased, Fever Over 101 Degrees F, Vaginal Bleeding Increase, Questions/Concerns For Any Problems or Questions: Contact Your Physician CAROLINE DESAI DO Jul 16, 2022 08:17
[2022-07-16] MEDS ORDERED: DIBU30OI TOP (08:21)
[2022-07-16] MEDS ORDERED: BENZ78AE5 TP (08:21)
[2022-07-16] MEDS ORDERED: IBUP-844 PO (08:21)
[2022-07-16] MEDS ORDERED: FERR325T24 PO (08:21)
[2022-07-16] MEDS ORDERED: DOCU100C37 PO (08:21)
[2022-07-16] MEDS ORDERED: ACET-93 PO (08:21)
[2022-07-16] MEDS: PRENATAL VITAMIN 1 EA TAB PO SCH (08:24)
[2022-07-16] MEDS: DOCUSATE SODIUM 100 MG (COLACE) CAP PO SCH ×2 (08:24→21:48)
[2022-07-16] MEDS: FERROUS SULF 325 MG (IRON) TAB PO SCH (08:24)
[2022-07-16 12:40] VITALS: BP 128/74
--- NOTE | 2022-07-16 12:56 | Anesthesia-Regional Post-Op ---
Regional Patient Condition Mental Status: Alert, Oriented x3 Circulation: Same as Pre-Op Headache: Absent Sensation: Full Recovery Motor Block: Absent Post Op Complications Complications None Follow Up Care/Instructions Patient Instructions None needed. Anesthesia/Patient Condition Patient is doing well, no complaints, stable vital signs, no apparent adverse anesthesia problems. No complications reported per nursing. HERBERT HUNT CRNA Jul 16, 2022 12:56
[2022-07-16 18:26] VITALS: BP 128/75
[2022-07-16 21:49] VITALS: BP 137/77
[2022-07-17] MEDS: ACETAMINOPHEN 500 MG TAB (TYLENOL) PO SCH (02:45)
[2022-07-17 03:35] VITALS: BP 129/78
[2022-07-17] MEDS: IBUPROFEN 600 MG (MOTRIN) TAB PO SCH ×2 (03:35→09:12)
[2022-07-17 09:10] VITALS: BP 130/77
[2022-07-17] MEDS: FERROUS SULF 325 MG (IRON) TAB PO SCH (09:12)
[2022-07-17] MEDS: PRENATAL VITAMIN 1 EA TAB PO SCH (09:12)
[2022-07-17] MEDS: DOCUSATE SODIUM 100 MG (COLACE) CAP PO SCH (09:12)
--- NOTE | 2022-07-17 10:09 | Postpartum Progress Note ---
Note Note Day # 2 Subjective: Patient is without complaints. Ambulating, voiding. Tolerating a regular diet without nausea or vomiting. Normal lochia. Pain is well controlled with oral pain medications. Physical Exam: General - Alert and oriented, no apparent distress Abdomen - Soft, appropriately tender to palpation, non-distended, fundus firm at umbilicus Extremities - no edema, negative Oliver's bilaterally Assessment: Post- day # 2, status post vaginal delivery. Recovering well, hemodynamically stable Plan: Routine care. Encourage breast feeding. Encourage ambulation. Ferrous sulfate supplementation. Plan for discharge today (will room-in until baby is DC'd) Vitals - Labs Vital Signs - I&O Vital Signs Date Time Temp Pulse Resp B/P (MAP) Pulse Ox O2 Delivery O2 Flow Rate FiO2 07/17/22 09:10 36.5 72 18 130/77 (94) 99 Room Air 07/17/22 03:35 36.4 67 18 129/78 (95) 98 Room Air 07/16/22 21:49 36.2 60 16 137/77 (97) 98 Room Air 07/16/22 18:26 36.5 60 16 128/75 (92) 97 Room Air 07/16/22 12:40 36.8 63 16 128/74 (92) 97 Room Air ROMANA FITZGERALD APRN Jul 17, 2022 10:09
== END 2022-07-17 12:05 | disposition home or self-care (01) | DRG 806 ==
LOC: LDRP 07:26
PROVIDERS: ADMIT Obstetrics & Gynecology; ATTEND Obstetrics & Gynecology
PROC: 10E0XZZ Delivery of Products of Conception, External Approach (ICD-10-PCS; principal; 2022-07-15)
PROC: 10907ZC Drainage of Amniotic Fluid, Therapeutic from Products of Conception, Via Natural or Artificial Opening (ICD-10-PCS; 2022-07-15)
PROC: 0HQ9XZZ Repair Perineum Skin, External Approach (ICD-10-PCS; 2022-07-15)
DX: O24.429 Gestational diabetes mellitus in childbirth, unspecified control (principal); D62 Acute posthemorrhagic anemia; Z37.0 Single live birth; Z3A.38 38 weeks gestation of pregnancy; O90.81 Anemia of the puerperium
CPT/HCPCS: 36415; 85025; 86780; 86850; 86900; 86901